=== PATIENT | female | born 2000 | race Caucasian/White ===

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

== ENCOUNTER 2021-07-16 22:57 | Emergency (ER) | payer MEDICAID, OTHER ==
[~2021-07-16] VITALS: Ht 177.8 cm; Wt 145.1 kg
[2021-07-16 23:44] VITALS: BP 139/54
[2021-07-17] MEDS ORDERED: KETOROLAC 30 MG/ML VIAL IM ONE (00:10)
[2021-07-17] MEDS ORDERED: DICYCLOMINE HCL LIQUID 20 MG, ALUMINUM HYD/MAG/SIMETHICONE 30 ML, LIDOCAINE VISCOUS 2% ... PO ONE ×3 (00:10)
[2021-07-17 00:36] LABS: BASOPHILS # (AUTO) 0.1 K/uL (0.00-0.22); BASOPHILS % (AUTO) 0.8 % (0.0-2.0); EOSINOPHILS # (AUTO) 0.1 K/uL (0-0.4); EOSINOPHILS % (AUTO) 1.3 % (0.0-4.0); HEMATOCRIT 43.4 % (36-48); HEMOGLOBIN 14.5 g/dL (12.0-16.0); LYMPHOCYTES # (AUTO) 2.3 K/uL (2.5-16.5); LYMPHOCYTES % (AUTO) 25.9 % (20.5-51.1); MEAN CORPUSCULAR HEMOGLOBIN 28 pg (27-31); MEAN CORPUSCULAR HGB CONC 33 g/dL (33-37); MEAN CORPUSCULAR VOLUME 83.8 fL (80-94); MONOCYTES # (AUTO) 0.5 K/uL (0.8-1.0); MONOCYTES % (AUTO) 5.2 % (1.7-9.3); NEUTROPHILS # (AUTO) 5.8 K/uL (1.8-7.7); NEUTROPHILS % (AUTO) 66.8 % (42.2-75.2); PLATELET COUNT (AUTO) 354 K/uL (140-450); RED BLOOD CELL COUNT(AUTO) 5.18 MIL/uL (4.20-5.40); RED CELL DISTRIBUTION WIDTH 15.2 % (11.6-13.7); WHITE BLOOD COUNT (AUTO) 8.7 K/uL (4.8-10.8)
--- NOTE | 2021-07-17 01:20 | NUR ---
PATIENT TO BED 7 AMBULATORY
[2021-07-17 01:23] LABS: ANION GAP 13.6 (8-16); CARBON DIOXIDE 25.5 mmol/L (21-32); POTASSIUM 4.1 mmol/L (3.5-5.1)
[2021-07-17 01:24] LABS: CREATININE 0.6 mg/dL (0.6-1.3)
--- NOTE | 2021-07-17 01:25 | NUR ---
PATIENT BIB FAMILY W/ C/O RIGHT SIDED ABDOMINAL PAIN IN RUQ AND RLQ X 5 DAYS. PMH: NONE NKDA
[2021-07-17 01:35] LABS: ALBUMIN 4.2 g/dL (3.4-5.0)
[2021-07-17] MEDS ORDERED: KETOROLAC 30 MG/ML VIAL ONE (02:46)
[2021-07-17] MEDS ORDERED: ALUMINUM HYD/MAG/SIMETHICONE 30 ML UDC ONE (02:47)
[2021-07-17] MEDS ORDERED: MORPHINE SULFATE 2 MG/ML SYR IM ONE (03:55)
[2021-07-17 05:05] VITALS: BP 124/78
--- NOTE | 2021-07-17 05:05 | NUR ---
Patient discharged with v/s stable. Written and verbal after care instructions given and explained. Patient verbalized understanding. Ambulatory with steady gait. All questions addressed prior to discharge. Advised to follow up with PMD.
[2021-07-17] MEDS ORDERED: ONDA-188 PO (05:12)
[2021-07-17] MEDS ORDERED: MAG355OR2 PO (05:12)
== END 2021-07-17 05:05 | disposition home or self-care (01) ==
LOC: MED 22:57
DX: R10.10 Upper abdominal pain, unspecified (principal); R11.2 Nausea with vomiting, unspecified
CPT/HCPCS: 36415; 74176; 76705; 80053; 81002; 81025; 83690; 85025; 96372; 99284; J1885; J2270; Q0092